=== PATIENT | male | born 1995 | race Caucasian/White ===

== ENCOUNTER 2016-09-10 19:29 | Emergency (ER) | payer BC ==
[2016-09-10 19:38] VITALS: BP 110/66
--- NOTE | 2016-09-10 20:26 | EDM.PDOC ---
ED HPI GENERAL MEDICAL PROBLEM - General Chief Complaint: General Stated Complaint: BAD HEADACHE AND FEVER Time Seen by Provider: 09/10/16 20:05 Source of Information: Reports: Patient History Limitations: Reports: No Limitations - History of Present Illness INITIAL COMMENTS - FREE TEXT/NARRATIVE: Patient is a 21-year-old male presents to ED with posterior headache, sinus congestion, recent fevers, that started yesterday. Patient taking ibuprofen with relief of symptoms. Sinus congestion has been going on for one week. Describes symptoms as minimal. Fever was documented at 10 3F to which he took ibuprofen. He presents to the ED afebrile. states appetite has been good with no changes.Denies any nausea/vomiting, vision changes, numbness tingling, weakness, nausea tingling, dizziness, stiff neck, cough,recent sick exposure, or sore throat. He has no past medical history is currently taking no medications. Has been no history of tick or mosquito bites. 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: NSAIDS Headache Pain Score (Numeric/FACES): 3 - Related Data Allergies Allergy/AdvReac Type Severity Reaction Status Date / Time cefuroxime axetil Allergy Anaphylactic Verified 09/10/16 19:38 [From Ceftin] Shock Home Meds: Home Meds Azithromycin [IJD: Azithromycin] 250 mg PO QAM #4 tab 09/10/16 [Rx] Past Medical History - Past Health History Medical/Surgical History: Denies Medical/Surgical History Social & Family History - Tobacco Use Smoking Status *Q: Never Smoker Second Hand Smoke Exposure: No - Caffeine Use Caffeine Use: Reports: Soda - Recreational Drug Use Recreational Drug Use: No ED ROS GENERAL - Review of Systems Review Of Systems: See Below Constitutional: Reports: Fever, Malaise, Decreased Appetite. Denies: Chills HEENT: Reports: Sinus Problem. Denies: Ear Pain, Rhinitis, Throat Pain, Vision Change Respiratory: Denies: Shortness of Breath, Cough, Sputum Cardiovascular: Reports: No Symptoms GI/Abdominal: Denies: Abdominal Pain, Constipation, Diarrhea, Nausea, Vomiting Musculoskeletal: Denies: Neck Pain, Muscle Stiffness Neurological: Reports: Headache. Denies: Dizziness, Numbness, Syncope, Tingling , Difficulty Walking, Weakness ED EXAM, GENERAL - Physical Exam Exam: See Below Exam Limited By: No Limitations General Appearance: Alert, WD/WN, No Apparent Distress Eye Exam: Bilateral Eye: EOMI, Nystagmus (none found), PERRL Ear Exam: Right Ear: Erythema, TM Dull, TM Red, Left Ear: TM normal, Bilateral Ear: Auricle Normal, Canal Normal Nose: Normal Inspection, Normal Mucosa Throat/Mouth: Normal Inspection, Normal Oropharynx, Normal Voice, No Airway Compromise Head: Atraumatic, Normocephalic Neck: Normal Inspection, Supple, Non-Tender, Full Range of Motion Respiratory/Chest: No Respiratory Distress, Lungs Clear, Normal Breath Sounds, No Accessory Muscle Use, Chest Non-Tender Cardiovascular: Normal Peripheral Pulses, Regular Rate, Rhythm Peripheral Pulses: 2+: Radial (L) GI/Abdominal: Normal Bowel Sounds, Soft, Non-Tender, No Organomegaly, No Distention Back Exam: Normal Inspection Extremities: Normal Inspection, Normal Range of Motion, Non-Tender, Normal Capillary Refill Neurological: Alert, Oriented, CN II-XII Intact, Normal Cognition, Normal Gait, No Motor/Sensory Deficits Psychiatric: Normal Affect, Normal Mood Skin Exam: Warm, Dry, Intact, Normal Color, No Rash Course - Vital Signs Last Recorded V/S: Last Vital Signs Temp 97.2 F 09/10/16 19:35 Pulse 76 09/10/16 19:35 Resp 18 09/10/16 19:35 BP 110/66 09/10/16 19:35 Pulse Ox 99 09/10/16 19:35 Orthostatic Blood Pressure [ 108/59 Standing] Orthostatic Blood Pressure [ 99/57 Supine] - Orders/Labs/Meds Meds: Medications Discontinued Medications Generic Name Dose Route Start Last Admin Trade Name José Miguelq PRN Reason Stop Dose Admin Azithromycin 500 mg 09/10/16 20:30 09/10/16 20:36 Zithromax PO 09/10/16 20:31 500 mg ONETIME ONE Administration - Re-Assessments/Exams Free Text/Narrative Re-Assessment/Exam: 09/10/16 20:21 Examination consistent for acute otitis media in the right side. 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 Ordered azithromycin 500 mg p.o. Patient will be discharged with instructions. Departure - Departure Time of Disposition: 20:23 Disposition: Home, Self-Care 01 Condition: good Clinical Impression: Otitis media Qualifiers: Otitis media type: unspecified Chronicity: unspecified Laterality: right Qualified Code(s): H66.91 - Otitis media, unspecified, right ear - Discharge Information Prescriptions: Azithromycin [IJD: Azithromycin] 250 mg PO QAM #4 tab Instructions: Otitis Media, Adult, [id number] Referrals: PCP,None [Primary Care Provider] - Elmer Black MD [Physician] - Forms: ED Department Discharge Additional Instructions: Take the oral antibiotic as prescribed. Utilize Tylenol and ibuprofen alternating fashion for pain and fever. Push the fluids. Ensure adequate rest. Followup with your primary care provider this coming week if symptoms have not drastically improved. Return to ED for any new or worsening symptoms.
[2016-09-10] MEDS ORDERED: Azithromycin 250 MG Tab PO ONE (20:30)
[2016-09-11] MEDS ORDERED: Azithromycin 250 MG Tab PO ONE (20:21)
== END 2016-09-10 20:44 | disposition home or self-care (01) ==
LOC: JD.ED 19:29
DX: H66.91 Otitis media, unspecified, right ear (principal); Z88.1 Allergy status to other antibiotic agents
CPT/HCPCS: 99284; A9270; 99283